=== PATIENT | male | born 2000 | race American Indian/Alaskan Native ===

== ENCOUNTER 2019-05-13 14:16 | Emergency (ER) | payer SELFPAY ==
[2019-05-13 14:24] VITALS: BP 122/48
--- NOTE | 2019-05-13 14:24 | Event Note ---
ED Screening Note ED Screening Note: dog bite to the right calf that occurred 3-4 days ago does not know the dog that bit him, does not know the vaccination status of the dog unsure of last tetanus immunization This initial assessment/diagnostic orders/clinical plan/treatment(s) is/are subject to change based on patients health status, clinical progression and re- assessment by fellow clinical providers in the ED. Further treatment and workup at subsequent clinical providers discretion. Patient/guardian urged not to elope from the ED as their condition may be serious if not clinically assessed and managed.
[2019-05-13] MEDS ORDERED: AMOXICILLIN/K CLAV 875/125MG TAB PO ONE (14:47)
[2019-05-13] MEDS ORDERED: TETANUS,DIPH,PERTUSS(ACELL) VACCINE 0.5 ML SYRINGE IM ONE (14:47)
--- NOTE | 2019-05-13 14:54 | Emergency Department Report ---
ED Animal Bite HPI - General Chief Complaint: Animal Bite Stated Complaint: DOG BITE Time Seen by Provider: 05/13/19 14:22 Source: patient Mode of arrival: Ambulatory Limitations: No Limitations - History of Present Illness Initial Comments: Samuel is a 18 yo male with hx of depression who presents with dog bite to right calf 4 days ago. Random animal in the neighborhood. He is unfamiliar with the dog. He does not know the immunization status of the animal. He has treated the wound at home. His mother recommended medical care. He denies any fever, body aches or generalized symptoms. MD Complaint: animal bite -: Sudden, days(s) (4) Location: other (right lower extremity) Right: Leg Animal: dog Animal Control Notified: No Description: unknown animal, immunizations unknown Mechanism: bite Context: unprovoked Associated Symptoms: erythema Treatments Prior to Arrival: irrigation - Related Data Home Medications Medication Instructions Recorded Confirmed Last Taken FLUoxetine HCL [FLUoxetine] 20 mg PO QDAY 08/24/14 08/24/14 08/24/14 14:00 OXcarbazepine [Trileptal] 300 mg PO BID 08/24/14 08/24/14 08/24/14 14:00 Previous Rx's Medication Instructions Recorded Last Taken Type Amoxicillin/Potassium Clav 1 each PO BID 7 Days #14 tablet 05/13/19 Unknown Rx [Augmentin 875-125 Tablet] Allergies Allergy/AdvReac Type Severity Reaction Status Date / Time No Known Allergies Allergy Verified 05/13/19 14:17 ED Review of Systems ROS: Stated complaint: DOG BITE Other details as noted in HPI Constitutional: denies: chills, fever, malaise Gastrointestinal: denies: abdominal pain, nausea, vomiting Skin: rash, lesions ED Past Medical Hx - Past Medical History Previous Medical History?: Yes Hx Psychiatric Treatment: Yes Additional medical history: Depression - Social History Smoking Status: Never Smoker Substance Use Type: None - Medications Home Medications: Home Medications Medication Instructions Recorded Confirmed Last Taken Type FLUoxetine HCL [FLUoxetine] 20 mg PO QDAY 08/24/14 08/24/14 08/24/14 14:00 History OXcarbazepine [Trileptal] 300 mg PO BID 08/24/14 08/24/14 08/24/14 14:00 History Amoxicillin/Potassium Clav 1 each PO BID 7 Days #14 tablet 05/13/19 Unknown Rx [Augmentin 875-125 Tablet] ED Physical Exam - General Limitations: No Limitations General appearance: alert, in no apparent distress - Head Head exam: Present: atraumatic, normocephalic - Neck Neck exam: Present: full ROM - Respiratory Respiratory exam: Absent: respiratory distress - Neurological Exam Neurological exam: Present: alert, oriented X3 - Skin Skin exam: Present: other (3 cm large gaping wound 1 cm of opening between the edges mild surrounding erythema, several punctures surrounding wounds) ED Course Vital Signs 05/13/19 14:23 Temperature 98.5 F Pulse Rate 74 Respiratory 16 Rate Blood Pressure 122/48 O2 Sat by Pulse 99 Oximetry - Reevaluation(s) Reevaluation #1: 05/13/19 14:53 Mr. Baxter presents with animal bite. Medications provided in the emergency department include: T that booster, Augmentin antibiotics, rabies vaccine, rabies immunoglobulin. Referred to health department for additional rabies vaccine series. 05/13/19 14:56 Wound is healing by secondary intention. - Procedure Description Procedures done: Using clean technique, alcohol prep. Using 6 ml syringe and 26 gauge needle, I injected 5 mL of rabies IG solution in the subcutaneous tissue surrounding and below the wound. Critical care attestation.: If time is entered above; I have spent that time in minutes in the direct care of this critically ill patient, excluding procedure time. ED Disposition Clinical Impression: Dog bite of right lower leg Disposition: DC-01 TO HOME OR SELFCARE Is pt being admited?: No Does the pt Need Aspirin: No Condition: Stable Instructions: Rabies Vaccine (Injection), Animal Bite (ED) Additional Instructions: You will need 3 additional rabies shots, on Thursday, next Thursday and the Following Thursday (14 days). Please call your local health department for assistance. Prescriptions: Amoxicillin/Potassium Clav [Augmentin 875-125 Tablet] 1 each PO BID 7 Days #14 tablet Referrals: [facility] [Outside] - 3-5 Days
[2019-05-13] MEDS ORDERED: RABIES VACCINE (PCEC)/PF 2.5 UNIT/ML KIT IM ONE (15:00)
[2019-05-13] MEDS ORDERED: RABIES IMMUNE GLOBULIN P/F 300 UNIT/ML INJ 5 ML IM ONE (15:00)
== END 2019-05-13 15:49 | disposition home or self-care (01) ==
LOC: ED 14:16
DX: S81.831A Puncture wound without foreign body, right lower leg, initial encounter (principal); F32.9 Major depressive disorder, single episode, unspecified; Z79.899 Other long term (current) drug therapy; W54.0XXA Bitten by dog, initial encounter; Y93.89 Activity, other specified; Y92.89 Other specified places as the place of occurrence of the external cause; Y99.8 Other external cause status
CPT/HCPCS: 90375; 90471; 90472; 90675; 90715; 96372

== ENCOUNTER 2019-05-15 20:16 | Emergency (ER) | payer SELFPAY ==
[2019-05-15 20:21] VITALS: BP 131/74
--- NOTE | 2019-05-15 20:25 | Emergency Department Report ---
Chief Complaint: Medical Clearance Stated Complaint: MED REFILL Time Seen by Provider: 05/15/19 20:21 - HPI History of Present Illness: This is a 18-year-old male nontoxic well in appearance with no signs of distress presents to the ED with for medication refill. Patient was here 2 days ago for dog bite and was given Augmentin but patient lost it. Patient denies any swelling, pus, or drainage. Patient denies any other symptoms. Denies any fever, chills, headache, nausea, vomiting, chest pain or SOB. Denies any other complaints. - Exam Vital Signs: Vital Signs 05/15/19 05/15/19 20:19 20:21 Temperature 98.6 F Pulse Rate 95 H Respiratory 18 Rate Blood Pressure 131/74 O2 Sat by Pulse 99 Oximetry Physical Exam: no abdominal pain. no swelling or pus noted. Normal exam. MSE screening note: Focused history and physical exam performed. Due to findings the following was ordered: ED Medical Decision Making - Medical Decision Making This is a 18-year-old male that presents for medication refill. Patient was instructed to Follow-up with a primary care doctor in 3-5 days or if symptoms worsen and continue return to emergency room as soon as possible. At time of discharge, the patient does not seem toxic or ill in appearance. No acute signs of distress noted. Patient agrees to discharge treatment plan of care. No further questions noted by the patient. ED Disposition for MSE Clinical Impression: Medication refill Disposition: DC-01 TO HOME OR SELFCARE Is pt being admited?: No Does the pt Need Aspirin: No Condition: Stable Additional Instructions: Follow-up with a primary care doctor in 3-5 days or if symptoms worsen and continue return to emergency room as soon as possible. Prescriptions: Amoxicillin/Potassium Clav [Augmentin 875-125 Tablet] 1 each PO BID 7 Days #14 tablet Referrals: PRIMARY MD RIYA [Referring] - 3-5 Days RICKEY MCFADDEN MD [Staff Physician] - 3-5 Days [facility] [Outside] - 3-5 Days
== END 2019-05-15 20:58 | disposition home or self-care (01) ==
LOC: ED 20:16
DX: S81.851D Open bite, right lower leg, subsequent encounter (principal); F32.9 Major depressive disorder, single episode, unspecified; Z76.0 Encounter for issue of repeat prescription; W54.0XXD Bitten by dog, subsequent encounter

== ENCOUNTER 2020-08-01 14:16 | Emergency (ER) | payer SELFPAY ==
[2020-08-01 14:22] VITALS: BP 120/66
--- NOTE | 2020-08-01 14:26 | Emergency Department Report ---
ED ENT HPI - General Chief complaint: Sore Throat Stated complaint: STREP THROAT Time Seen by Provider: 08/01/20 14:22 Source: patient Mode of arrival: Ambulatory Limitations: No Limitations - History of Present Illness Initial comments: This is a 19-year-old male nontoxic, well nourished in appearance, no acute signs of distress presents to the ED with c/o of sore throat. Patient describes sore throat as swallowing razer blades. Patient denies any fever, chills, headache, stiff neck, nausea, vomiting, chest pain, shortness of breath, numbness or tingling. Patient denies any drooling or hoarseness. Patient denies any allergies or significant past medical history. MD complaint: sore throat -: days(s) Location: throat Severity: mild Severity scale (0 -10): 8 Quality: aching Consistency: constant Improves with: none Worsens with: swallowing Associated Symptoms: pain with swallowing, sore throat. denies: fever, cough, gum swelling, toothache, tinnitus, hearing loss, discharge from ear, rhinorrhea - Related Data Home Medications Medication Instructions Recorded Confirmed Last Taken FLUoxetine HCL [FLUoxetine] 20 mg PO QDAY 08/24/14 08/24/14 08/24/14 14:00 OXcarbazepine [Trileptal] 300 mg PO BID 08/24/14 08/24/14 08/24/14 14:00 Previous Rx's Medication Instructions Recorded Last Taken Type Amoxicillin/Potassium Clav 1 each PO BID 7 Days #14 tablet 05/15/19 Unknown Rx [Augmentin 875-125 Tablet] Amoxicillin [Amoxicillin TAB] 875 mg PO BID #20 tablet 08/01/20 Unknown Rx Nystas/Diphen/Xyl Visc/Mylanta 15 ml MM Q6H PRN 5 Days bottle 08/01/20 Unknown Rx [Magic Mouthwash] Allergies Allergy/AdvReac Type Severity Reaction Status Date / Time No Known Allergies Allergy Verified 08/01/20 14:22 ED Dental HPI - General Chief complaint: Sore Throat Stated complaint: STREP THROAT Time Seen by Provider: 08/01/20 14:22 Source: patient Mode of arrival: Ambulatory Limitations: No Limitations - Related Data Home Medications Medication Instructions Recorded Confirmed Last Taken FLUoxetine HCL [FLUoxetine] 20 mg PO QDAY 08/24/14 08/24/14 08/24/14 14:00 OXcarbazepine [Trileptal] 300 mg PO BID 08/24/14 08/24/14 08/24/14 14:00 Previous Rx's Medication Instructions Recorded Last Taken Type Amoxicillin/Potassium Clav 1 each PO BID 7 Days #14 tablet 05/15/19 Unknown Rx [Augmentin 875-125 Tablet] Amoxicillin [Amoxicillin TAB] 875 mg PO BID #20 tablet 08/01/20 Unknown Rx Nystas/Diphen/Xyl Visc/Mylanta 15 ml MM Q6H PRN 5 Days bottle 08/01/20 Unknown Rx [Magic Mouthwash] Allergies Allergy/AdvReac Type Severity Reaction Status Date / Time No Known Allergies Allergy Verified 08/01/20 14:22 ED Review of Systems ROS: Stated complaint: STREP THROAT Other details as noted in HPI Comment: All other systems reviewed and negative Constitutional: denies: chills, fever Eyes: denies: eye pain, eye discharge, vision change ENT: throat pain. denies: ear pain Respiratory: denies: cough, shortness of breath, wheezing Cardiovascular: denies: chest pain, palpitations Endocrine: no symptoms reported Gastrointestinal: denies: abdominal pain, nausea, diarrhea Genitourinary: denies: urgency, dysuria Musculoskeletal: denies: back pain, joint swelling, arthralgia Skin: denies: rash, lesions Neurological: denies: headache, weakness, paresthesias Psychiatric: denies: anxiety, depression Hematological/Lymphatic: denies: easy bleeding, easy bruising ED Past Medical Hx - Past Medical History Hx Psychiatric Treatment: Yes Additional medical history: Depression - Social History Smoking Status: Never Smoker Substance Use Type: None - Medications Home Medications: Home Medications Medication Instructions Recorded Confirmed Last Taken Type FLUoxetine HCL [FLUoxetine] 20 mg PO QDAY 08/24/14 08/24/14 08/24/14 14:00 History OXcarbazepine [Trileptal] 300 mg PO BID 08/24/14 08/24/14 08/24/14 14:00 History Amoxicillin/Potassium Clav 1 each PO BID 7 Days #14 tablet 05/15/19 Unknown Rx [Augmentin 875-125 Tablet] Amoxicillin [Amoxicillin TAB] 875 mg PO BID #20 tablet 08/01/20 Unknown Rx Nystas/Diphen/Xyl Visc/Mylanta 15 ml MM Q6H PRN 5 Days bottle 08/01/20 Unknown Rx [Magic Mouthwash] ED Physical Exam - General Limitations: No Limitations General appearance: alert, in no apparent distress - Head Head exam: Present: atraumatic, normocephalic - Eye Eye exam: Present: normal appearance - Expanded ENT Exam Expanded Mouth exam: Present: normal external inspection. Absent: drooling, trismus, muffled voice Teeth exam: Present: normal inspection Throat exam: Positive: tonsillar erythema, tonsillomegaly (2+ bilateral), other (Uvula midline. No tonsillar abscess.). Negative: tonsillar exudate, R peritonsillar mass, L peritonsillar mass - Neck Neck exam: Present: normal inspection, full ROM. Absent: tenderness, meningismus, lymphadenopathy - Respiratory Respiratory exam: Absent: respiratory distress - Cardiovascular Cardiovascular Exam: Present: regular rate - Extremities Exam Extremities exam: Present: full ROM - Back Exam Back exam: Present: full ROM - Neurological Exam Neurological exam: Present: alert, oriented X3, normal gait - Psychiatric Psychiatric exam: Present: normal affect, normal mood - Skin Skin exam: Present: warm, dry, intact, normal color. Absent: rash ED Course Vital Signs 08/01/20 14:17 Temperature 98.2 F Pulse Rate 83 Respiratory 14 Rate Blood Pressure 120/66 O2 Sat by Pulse 99 Oximetry - Reevaluation(s) Reevaluation #1: 08/01/20 14:24 Patient is speaking in full sentences with no signs of distress noted. ED Medical Decision Making - Medical Decision Making Patient is stable and was examined by me. Vital signs are stable. Patient be discharged with amoxicillin and Magic mouthwash. Patient was instructed to follow-up with a primary care doctor in 3-5 days or if symptoms worsen and continue return to emergency room as soon as possible. At time of discharge, the patient does not seem toxic or ill in appearance. No acute signs of distress noted. Patient agrees to discharge treatment plan of care. No further questions noted by the patient. Critical care attestation.: If time is entered above; I have spent that time in minutes in the direct care of this critically ill patient, excluding procedure time. ED Disposition Clinical Impression: Tonsillitis Pharyngitis Qualifiers: Pharyngitis/tonsillitis etiology: unspecified etiology Qualified Code(s): J02.9 - Acute pharyngitis, unspecified Disposition: DC-01 TO HOME OR SELFCARE Is pt being admited?: No Does the pt Need Aspirin: No Condition: Stable Instructions: Tonsillitis, Pharyngitis, [id number] Additional Instructions: Follow-up with a primary care doctor in 3-5 days or if symptoms worsen and continue return to emergency room as soon as possible. Prescriptions: Amoxicillin [Amoxicillin TAB] 875 mg PO BID #20 tablet Nystas/Diphen/Xyl Visc/Mylanta [Magic Mouthwash] 15 ml MM Q6H PRN 5 Days bottle PRN Reason: Sore Throat Referrals: PRIMARY CARE, [Referring] - 3-5 Days RICKEY MCFADDEN MD [Staff Physician] - 3-5 Days Forms: Work/School Release Form(ED) Time of Disposition: 14:26
== END 2020-08-01 16:26 | disposition home or self-care (01) ==
LOC: ED 14:16
DX: J03.90 Acute tonsillitis, unspecified (principal); F32.9 Major depressive disorder, single episode, unspecified; Z79.2 Long term (current) use of antibiotics; Z79.899 Other long term (current) drug therapy
CPT/HCPCS: 99281